=== PATIENT | female | born 1990 | race Caucasian/White ===

== ENCOUNTER 2024-08-24 08:12 | Inpatient (IN) ==
[2024-08-24] MEDS ORDERED: LIDOCAINE 1% LOCAL 20 ML VIAL INFIL PRN (09:18)
[2024-08-24] MEDS ORDERED: OXYTOCIN 30 UNITS/NSS 30 UNITS/500 ML BAG IV PRN ×2 (09:18→23:16)
--- NOTE | 2024-08-24 09:44 | History & Physical Report ---
Date of Service August 24, 2024 Assessment & Plan (1) Encounter for supervision of normal intrauterine in multigravida, antepartum: (2) Group B streptococcal infection during : (3) Insulin controlled gestational diabetes mellitus (GDM) during : (4) Gestational diabetes: Plan Yenni is a 34 y/o female currently at 39/0 WGA with an LONNIE 08/31/24 as determined LMP who is here for after SROM at home. Her was complicated by GDM and GBS pos. Category 1 tracing; moderate FHT variability. - Will order Pitocin is needed for progression of labor - Consult anesthesiology for epidural at pt's discretion - BSG checks q2h, insulin PRN - Start penicillin for GBS + - Monitor labor progress History of Present Illness Primary Care Provider: Vy Virk MD Yenni is a 34 y/o female currently at 39/0 WGA with an LONNIE 08/31/24 as determined LMP who is here for after SROM at home. Her was complicated by GDM and GBS pos. regular contractions; regular movement; + fluid loss; + bloody show Had regular appointments with OB. OB Labs: Blood Type B Positive 01/20/24 Antibody Screen NEGATIVE 01/20/24 Hgb 12.8 g/dl (12.0-16.0) 06/08/24 Hct 39.2 % (37.0-47.0) 06/08/24 MCV 88.0 fL (80.0-100.0) 01/20/24 Plt Count 315 K/uL (130-400) 01/20/24 Rubella IgG Antibody Immune (Immune) 01/20/24 Treponema pallidum Ab Negative (Negative) 06/08/24 Hep Bs Antigen Negative (Negative) 01/20/24 Hepatitis C Antibody Negative (Negative) 01/20/24 HIV 1&2 Ab/P24 Ag 4thGn Negative (Negative) 01/20/24 Glucose 1 Hr 50 gm 172 mg/dl (70-130) H 03/15/24 Maternal Serum AFP 27.6 ng/mL 03/15/24 OB Optional Labs: Chlamydia trachomatis RNA Not Detected (NotDetected) 01/20/24 Neisseria gonorrhoeae RNA Not Detected (NotDetected) 01/20/24 Alpha Fetoprotein Triple Screen SEE NOTE 03/15/24 Labs Reviewed: failed 16 week 2 hr gtt--[facility] neg cf/sma--[facility] low risk panorama--[facility] Allergies Allergy/AdvReac Type Severity Reaction Status Date / Time cefixime [From Suprax] Allergy Unknown Vomiting Verified 08/18/24 08:42 erythromycin base Allergy Unknown Vomiting Verified 08/18/24 08:42 sulfamethoxazole Allergy Unknown Vomiting Verified 08/18/24 08:42 [From Bactrim] trimethoprim [From Bactrim] Allergy Unknown Vomiting Verified 08/18/24 08:42 Home Medications Medication Instructions Recorded Confirmed Type [id number] acid 0 mg PO DAILY 01/21/23 08/24/24 History [ Multi] acetone (urine) test (Ketone Urine #50 ea 04/12/24 08/18/24 Rx Test strips) blood sugar diagnostic (Contour #150 ea 04/12/24 08/18/24 Rx Next Test Strips) lancets (Microlet Lancet) #100 ea 06/08/24 08/18/24 Rx insulin NPH isoph U-100 human 100 10 unit (0.1 mL) subcut .at bed 07/12/24 08/24/24 Rx unit/mL (3 mL) subcutaneous pen time #15 mL (Novolin N FlexPen) pen needle, diabetic 32 gauge x #100 ea 07/12/24 08/18/24 Rx 5/32" (BD Ultra-Fine Maranda Pen Needle) Patient History Medical History (Updated 08/24/24 @ 09:43 by Maggie Zhang DO) Varicella vaccination Cholesteatoma Age 7 right surgeryhar Surgical History History of ear surgery removal of cholesteatoma and stapedectomy H/O wisdom tooth extraction Family History Unknown No problems noted. 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 Denies breast pain. Denies dysuria. Noted headache this morning, no changes in vision. Physical Exam Physical Exam: General: Alert, oriented. No acute distress. Cardiac: Regular rate and rhythm, no murmurs/rubs/gallops. Respiratory: Clear to auscultation bilaterally a/p, no wheezes/rales/rhonchi. No increased work of breathing. Symmetrical chest rise. No respiratory distress. Abdomen: Gravid; Position: Vertex Pelvic: Dilation 3 cm; Effacement 70%; Station -[address] Cortes Lower Extremities: No lower extremity edema or swelling. No deep calf pain. Jules's negative bilaterally Results & Data Vital Signs (Past 12 Hours) Vital Signs Temp Pulse Resp BP 08/24/24 08:34 100 H 126/79 08/24/24 08:29 36.8 C 20 Monitoring External Monitor External FHT and external uterine monitors used; Category 1 tracing; moderate FHT variability. Supervising Physician Co-Signing Physician Notes Resident Physician Supervision Note: I interviewed and examined the patient. Discussed with Dr. Zhang and agree with findings and plan as documented in the note. Any exceptions or clarifications are listed here: 34 yo at 39 wga dx w/ rom - positive nitrazine, pooling, ferning. VSS, fetus cat 1. SVE 3/75/-2, eFW 7-8. Will allow to walk, pit prn. GBS+, pcn ordered. epidural prn Documented By: Kaylene Cortes MD Resident Activity Tracking Resident Involvement: Resident Care Provided Care Provided: Adult Hospital Medicine
[2024-08-24] MEDS: LACTATED RINGER'S 1,000 ML IV PRN (09:46)
[2024-08-24] MEDS: PENICILLIN GK 6 MU in DEXTROSE 5% 250 ML IV STA (09:46)
[2024-08-24 09:53] LABS: Hematocrit (blood only) 40.5 % (37.0-47.0); Hemoglobin 14.1 g/dl (12.0-16.0); Mean Corpuscular Hemoglobin 31.3 pg (25.0-34.0); Mean Corpuscular Hgb Conc 34.8 g/dL (32.0-36.0); Mean Platelet Volume 11.7 fL (9.4-12.4); Platelet Count 170 K/uL (130-400); RDW Coefficient of Variation 13.6 % (11.5-14.5); RDW Standard Deviation 44.9 fL (36.4-46.3)
--- NOTE | 2024-08-24 12:50 | Anesthesiology Consultation ---
Date of Service August 24, 2024 Assessment & Plan (1) Encounter for pre-operative examination: Chart Review Chart Review: Acceptable Risk for Labor Epidural History Height/Weight Height: 5 ft 1 in Weight: 60.328 kg Allergies Allergy/AdvReac Type Severity Reaction Status Date / Time cefixime [From Suprax] Allergy Unknown Vomiting Verified 08/18/24 08:42 erythromycin base Allergy Unknown Vomiting Verified 08/18/24 08:42 sulfamethoxazole Allergy Unknown Vomiting Verified 08/18/24 08:42 [From Bactrim] trimethoprim [From Bactrim] Allergy Unknown Vomiting Verified 08/18/24 08:42 Medications Home Medications Medication Instructions Recorded Confirmed Last Taken [id number] acid 0 mg PO DAILY 01/21/23 08/24/24 08/23/24 08:00 [ Multi] acetone (urine) test (Ketone Urine #50 ea 04/12/24 08/18/24 Unknown Test strips) blood sugar diagnostic (Contour #150 ea 04/12/24 08/18/24 Unknown Next Test Strips) lancets (Microlet Lancet) #100 ea 06/08/24 08/18/24 Unknown insulin NPH isoph U-100 human 100 10 unit (0.1 mL) subcut .at bed 07/12/24 08/24/24 08/23/24 20:00 unit/mL (3 mL) subcutaneous pen time #15 mL (Novolin N FlexPen) pen needle, diabetic 32 gauge x #100 ea 07/12/24 08/18/24 Unknown 5/32" (BD Ultra-Fine Maranda Pen Needle) Active Medications Generic Name Dose Route Start Last Admin Trade Name Freq PRN Reason Stop Dose Admin Lactated Ringer's 1,000 mls @ 125 mls/hr 08/24/24 09:18 08/24/24 12:30 Lr IV 08/25/24 09:17 999 mls/hr .Q8H PRN Infusion L&D Protocol Protocol Past Medical History Medical History (Updated 08/24/24 @ 12:50 by Adrian Orozco MD) Insulin controlled gestational diabetes mellitus (GDM) during Hearing loss Varicella vaccination Past Family History Family History Unknown No problems noted. Grandmother (Maternal) Breast cancer Mother Hypercholesteremia Hypothyroid Hypertension Denies family history of Ovarian cancer Colorectal cancer Past Surgical History Surgical History History of ear surgery removal of cholesteatoma and stapedectomy H/O wisdom tooth extraction Social History Smoking Status: Never smoker Do You Dip or Chew Tobacco: No Hx Alcohol Use: No (social) Hx Substance Use: No Physical Exam Vital Signs Last Vital Signs Temp 36.8 C 08/24/24 08:29 Pulse 96 H 08/24/24 12:02 Resp 20 08/24/24 08:29 BP 129/71 08/24/24 12:02 Testing Laboratory Results 08/24/24 09:30 08/24/24 08/24/24 12:04 09:32 POC Glucose 83 91
[2024-08-24] MEDS: fentaNYL citrate PF 100 MCG/2 ML VIAL ONE (13:16)
[2024-08-24] MEDS: fentANYL 2 MCG/ML BUPIVacaine 0.125%-NSS 100ML BAG ONE (13:16)
[2024-08-24] MEDS: BUPIVACAINE 0.25% PF 30 ML VIAL ONE (13:16)
[2024-08-24] MEDS ORDERED: SODIUM CHLORIDE 0.9% PF INJ 10 ML VIAL EPI PRN (13:22)
[2024-08-24] MEDS ORDERED: fentaNYL citrate PF 100 MCG/2 ML VIAL EPI PRN (13:22)
[2024-08-24] MEDS ORDERED: ePHEDrine sulfate 50 MG/ML AMP IV PRN (13:22)
[2024-08-24] MEDS ORDERED: BUPIVACAINE 0.25% PF 30 ML VIAL EPI PRN (13:22)
[2024-08-24] MEDS ORDERED: NALOXONE HCL 1 MG in SODIUM CHLORIDE 0.9% 1,000 ML IV PRN (13:22)
[2024-08-24] MEDS ORDERED: ROPIVACAINE 0.5% PF 5 MG/ML 20 ML VIAL EPI PRN (13:22)
[2024-08-24] MEDS ORDERED: LIDOCAINE 2% MPF LOCAL 5 ML VIAL EPI PRN (13:22)
[2024-08-24] MEDS ORDERED: NALOXONE HCL 0.4 MG/1 ML VIAL/CARP IV PRN (13:22)
--- NOTE | 2024-08-24 13:49 | Labor Progress Brief Note ---
Date of Service August 24, 2024 Subjective comfortable w/ epidural Assessment & Plan (1) Encounter for supervision of normal intrauterine in multigravida, antepartum: (2) Group B streptococcal infection during : (3) Insulin controlled gestational diabetes mellitus (GDM) during : (4) Gestational diabetes: Plan 34 yo at 39 wga presents w/ srom VSS Fetus cat 1 labor - good progress noted, augment prn A2GDM - bg good thus far GBS+, pcn ordered epidural in place Admission and Anticipated Discharge Date Admission Date: August 24, 2024 Physical Exam Genitourinary: Manual OB Exam: + cervical dilation 4 cm, + cervical effacement 90% and + station -1 OB Exam Monitor Tracing: + external FHT monitor used, + external uterine monitor used (q4-8) and + category I (135/mod/+accel/-decel) Results & Data Vital Signs (Past 12 Hours) Vital Signs Temp Pulse Resp BP Pulse Ox 08/24/24 13:45 93 H 119/67 08/24/24 13:41 101 H 98 08/24/24 13:36 105 H 142/66 H 99 08/24/24 13:31 99 H 98 08/24/24 13:30 16 08/24/24 13:30 96 H 16 114/67 08/24/24 13:26 105 H 96 08/24/24 13:25 20 08/24/24 13:25 20 08/24/24 13:24 100 H 101/57 L 08/24/24 13:23 107 H 106/61 08/24/24 13:21 109 H 108/64 97 08/24/24 13:20 20 08/24/24 13:20 20 08/24/24 13:19 93 H 110/63 08/24/24 13:17 111 H 117/67 08/24/24 13:16 113 H 97 08/24/24 13:15 113 H 103/62 08/24/24 13:14 20 08/24/24 13:14 20 08/24/24 13:13 111 H 109/63 08/24/24 13:11 115 H 115/60 97 08/24/24 13:06 116 H 98 08/24/24 13:01 118 H 99 08/24/24 12:03 18 08/24/24 12:03 98.1 F 18 08/24/24 12:02 96 H 129/71 08/24/24 08:34 100 H 126/79 08/24/24 08:29 98.2 F 20 Coding Level of Care Code None Diagnoses Encounter for supervision of normal intrauterine in multigravida, antepartum Z34.80 Group B streptococcal infection during O98.819; B95.1 Insulin controlled gestational diabetes mellitus (GDM) during O24.414 Gestational diabetes O24.419
[2024-08-24] MEDS: PENICILLIN GK 3 MU in DEXTROSE 5% 100 ML IV PRN (13:59)
[2024-08-24] MEDS: OXYTOCIN 30 UNITS/NSS 30 UNITS/500 ML BAG IV PRN (14:40)
[2024-08-24] MEDS: ONDANSETRON INJ 2 MG/ML 2 ML VIAL IV PRN (15:50)
[2024-08-24] MEDS ORDERED: ROPIVACAINE 0.5% 5 MG/ML 30 ML VIAL ONE (17:33)
[2024-08-24] MEDS ORDERED: LIDOCAINE 2%/EPINEPHRINE 1:200,000 20 ML PF ONE (17:33)
--- NOTE | 2024-08-24 17:40 | Anesthesia Procedure Note ---
Date of Service August 24, 2024 Anesthesia Epidural Re-Dose Vital Signs Temp Pulse Resp BP Pulse Ox 37.0 C 97 H 18 123/71 97 08/24/24 17:02 08/24/24 17:36 08/24/24 17:30 08/24/24 17:29 08/24/24 17:36 Notes Pain Intensity: 5 Dilatation (cm): 8.0 Effacement (%): 90 Called by nursing to evaluate epidural as the patient is having increased pain though still able to talk through contraction.. The epidural was re-dosed with the following medications (all medications via epidural route) after negative aspiration of the epidural catheter for CSF/HEME 1.2% lidocaine and 0.2% ropivacaine 7ml After Epidural Re-Dose Mental Status: alert / awake / arousable Pain: improving with treatment Airway Patency, RR, SpO2: stable & adequate BP & HR: stable & adequate
[2024-08-24] MEDS: LIDOCAINE 2%/EPINEPHRINE 1:200,000 20 ML PF ONE (17:59)
[2024-08-24] MEDS: SODIUM CHLORIDE 0.9% PF INJ 10 ML VIAL ONE (17:59)
[2024-08-24] MEDS: BUPIVACAINE 0.25% PF 30 ML VIAL EPI STA (17:59)
[2024-08-24] MEDS: fentaNYL citrate PF 100 MCG/2 ML VIAL EPI STA (17:59)
[2024-08-24] MEDS: SODIUM CHLORIDE 0.9% PF INJ 10 ML VIAL EPI STA (17:59)
[2024-08-24] MEDS: LIDOCAINE 2%/EPINEPHRINE 1:200,000 20 ML PF EPI STA (17:59)
[2024-08-24] MEDS: fentANYL 2 MCG/ML BUPIVacaine 0.125%-NSS 100ML BAG EPI PRN (19:42)
--- NOTE | 2024-08-24 23:13 | Delivery Summary ---
Vaginal Delivery Summary Date of Service August 24, 2024 Vaginal Delivery Summary [facility] PREOPERATIVE DIAGNOSIS: 1. Single intrauterine at 39 wga 2. SROM 3. A2GDM 4. GBS+ POSTOPERATIVE DIAGNOSIS: 1. Single intrauterine at 39 wga 2. SROM 3. A2GDM 4. GBS+ 5. Delivered PROCEDURE: 1. Normal spontaneous vaginal delivery. SURGEON: Kaylene Cortes MD ANESTHESIA: Epidural. QUANTITATIVE BLOOD LOSS: 223 mL FLUIDS: Continuous LR. URINE OUTPUT: 100cc by straight cath after delivery COMPLICATIONS: None. CONDITION: Stable. INDICATIONS: 34 yo at 39 wga presented this morning with SROM. She was started on penicillin for GBS+. She progressed spontaneously and received an epidural for pain control. Following the epidural, pitocin was started due to contractions spacing out. She progressed to complete and desired to push FINDINGS: A viable male , weight pending with Apgars of 9 and 9 at 1 and 5 minutes respectively. SPECIMEN: Cord blood OPERATIVE REPORT: The patient progressed to 10 cm, 100% effaced and +2 station, pushed over intact perineum with anesthesia to deliver a viable male infant, weight and Apgars as above. Head of delivered in MI position. No nuchal cord was present. Body and shoulders were delivered without difficulty. was delivered to maternal abdomen and nursing staff. Delayed cord clamping was performed for 60 seconds. Cord was clamped and cut. Cord blood was obtained. Placenta delivered spontaneously intact with 3-vessel cord. IV oxytocin and fundal massage were given for excellent hemostasis. Vagina, cervix, perineum, and placenta were inspected. Hemostatic anterior and right vaginal wall abras ions did not need repaired. Sponge and needle counts correct x2. No sponges were left behind. Mother and stable in immediate period. [facility] Vaginal Delivery Charge Vaginal Delivery Codes: 49087 global code for the antepartum, delivery, and post- Delivery Type Details: [facility]
[2024-08-24] MEDS ORDERED: bisacodyL 10 MG SUPP PR PRN (23:16)
[2024-08-24] MEDS ORDERED: HYDROCORTISONE ACETATE 25 MG SUPP PR PRN (23:16)
[2024-08-24] MEDS: ePHEDrine sulfate 50 MG/ML AMP ONE (23:44)
[2024-08-24] MEDS: DIPHTHER/TETAN/PERTUS Vaccine (Tdap, Adol/Adult) 0.5mL IM ONE (23:44)
[2024-08-24] MEDS: NURSING L&D Epidural Breakthrough Pain Update ONE (23:44)
[2024-08-24] MEDS: BENZOCAINE 20% SPRY 85 APPLN/85 GM CAN EXT PRN (23:50)
[2024-08-24] MEDS: IBUPROFEN 600 MG TAB PO PRN (23:50)
[2024-08-25] MEDS: ACETAMINOPHEN 325 MG TAB PO PRN (04:32)
--- NOTE | 2024-08-25 06:02 | Obstetrical Progress Note ---
Date of Service August 25, 2024 Assessment & Plan (1) Encounter for care and examination after delivery: (2) Group B streptococcal infection during : (3) Gestational diabetes: Plan Pt is 34 yo post- day 1 s/p at 39w0d. complicated by GDM and GBS pos. - Encourage ambulation and breast feeding - Pain control with tylenol and ibuprofen - Likely Discharge 08/26 Admission and Anticipated Discharge Date Admission Date: August 24, 2024 Supervising Physician Co-Signing Physician Notes Resident Physician Supervision Note: I interviewed and examined the patient. Discussed with Dr. Zhang and agree with findings and plan as documented in the note. Any exceptions or clarifications are listed here: PP1 s/p , doing well. VSS, exam benign. Continue routine care Documented By: Kaylene Cortes MD Subjective Pt is 34 yo post- day 1 s/p at 39w0d. complicated by GDM and GBS pos. Ambulation:In room with hand held assist Voiding: voiding normally Passing gas: no BM: No Diet tolerance: regular diet Lochia:bloody, no clots Feeding type: breast Current pain level: 0 /10 improved with tylenol Resting comfortably this morning in NAD. Noting continued numbness at toes after epidural. Some difficulty walking due to numbness. Had some nausea after delivery, but has resolved. Denies KATHLEEN, CP, SOB, N/V/D, LE pain/swelling. Review of Systems Review of Systems: As per HPI Physical Exam Constitutional: WD/WN, vitals as above Respiratory: normal respiratory effort, lungs clear to auscultation Cardiovascular: RRR, no murmur, no edema Gastrointestinal (Abdomen): normal bowel sounds, soft, nontender, no hepatosplenomegaly Uterine fundus firm and at 1 cm below level of umbilicus Neurologic: PERRL, EOMI, accommodation nl, no face palsy, no dysarthria Moving all 4 extremities on command Psychiatric: A+Ox3, euthymic affect Results & Data Vital Signs (Past 12 Hours) Vital Signs Temp Pulse Resp BP Pulse Ox 08/25/24 02:02 97 H 107/66 08/25/24 01:47 93 H 108/60 08/25/24 01:32 95 H 120/66 08/25/24 01:17 105 H 122/58 L 08/25/24 01:02 98 H 111/55 L 08/25/24 00:47 111 H 121/63 08/25/24 00:32 102 H 122/65 08/25/24 00:17 112 H 113/64 08/25/24 00:02 108 H 111/63 08/24/24 23:47 97 H 114/63 08/24/24 23:32 106 H 116/77 08/24/24 23:17 95 H 113/61 08/24/24 23:02 101 H 120/63 08/24/24 22:54 112 H 96 08/24/24 22:49 107 H 96 08/24/24 22:47 117 H 139/65 08/24/24 22:44 118 H 90 08/24/24 22:39 126 H 100 08/24/24 22:34 96 08/24/24 22:34 102 H 08/24/24 22:34 118 H 125/67 08/24/24 22:33 115 H 86 L 08/24/24 22:29 102 H 98 08/24/24 22:26 112 H 83 L 08/24/24 22:24 103 H 97 08/24/24 22:19 104 H 96 08/24/24 22:18 112 H 91 08/24/24 22:13 120 H 97 08/24/24 22:12 108 H 87 L 08/24/24 22:10 20 08/24/24 22:10 37.2 C 20 08/24/24 22:08 105 H 96 08/24/24 22:06 109 H 91 08/24/24 22:03 109 H 129/64 99 08/24/24 22:00 129 H 80 L 08/24/24 21:58 123 H 96 08/24/24 21:53 115 H 97 08/24/24 21:48 127 H 96 08/24/24 21:47 127 H 115/55 L 08/24/24 21:43 110 H 96 08/24/24 21:38 109 H 96 08/24/24 21:34 125 H 124/56 L 08/24/24 21:33 119 H 96 08/24/24 21:28 112 H 97 08/24/24 21:23 96 08/24/24 21:23 126 H 08/24/24 21:23 111 H 93 08/24/24 21:18 110 H 95 08/24/24 21:13 113 H 96 08/24/24 21:11 105 H 92 08/24/24 21:08 104 H 96 08/24/24 21:04 106 H 91 08/24/24 21:02 97 08/24/24 21:02 110 H 08/24/24 21:02 110 H 128/64 08/24/24 20:58 107 H 91 08/24/24 20:57 106 H 97 08/24/24 20:52 96 08/24/24 20:52 123 H 08/24/24 20:52 103 H 93 08/24/24 20:48 97 H 177/78 H 08/24/24 20:47 96 H 96 08/24/24 20:46 100 H 92 08/24/24 20:41 91 H 96 08/24/24 20:39 115 H 90 08/24/24 20:36 100 H 96 08/24/24 20:33 100 H 120/73 08/24/24 20:31 91 H 97 08/24/24 20:26 98 H 97 08/24/24 20:21 120 H 97 08/24/24 20:17 113 H 105/64 08/24/24 20:16 106 H 96 08/24/24 20:11 104 H 96 08/24/24 20:06 96 H 97 08/24/24 20:02 110 H 117/59 L 08/24/24 20:01 96 H 97 08/24/24 19:56 95 H 96 08/24/24 19:51 96 H 96 08/24/24 19:47 96 H 122/67 08/24/24 19:46 94 H 96 08/24/24 19:41 96 H 96 08/24/24 19:36 102 H 96 08/24/24 19:32 96 H 117/71 08/24/24 19:31 95 H 96 08/24/24 19:26 92 H 96 08/24/24 19:21 88 96 08/24/24 19:18 98 H 112/73 08/24/24 19:16 90 96 08/24/24 19:11 89 96 08/24/24 19:06 100 H 95 08/24/24 19:04 104 H 154/71 H 08/24/24 19:01 37.1 C 100 H 18 96 08/24/24 18:59 102 H 94 08/24/24 18:56 107 H 97 08/24/24 18:51 104 H 96 08/24/24 18:49 101 H 118/60 08/24/24 18:46 90 96 08/24/24 18:41 101 H 97 08/24/24 18:36 118 H 96 08/24/24 18:32 120 H 113/72 08/24/24 18:31 116 H 97 08/24/24 18:30 18 08/24/24 18:30 18 08/24/24 18:26 99 H 96 08/24/24 18:21 103 H 96 08/24/24 18:19 96 H 124/67 08/24/24 18:16 101 H 96 08/24/24 18:11 96 H 96 08/24/24 18:06 99 H 96 08/24/24 18:02 110 H 116/70 08/24/24 18:01 114 H 96 08/24/24 18:00 18 08/24/24 18:00 18 Resident Activity Tracking Resident Involvement: Resident Care Provided Care Provided: Adult Hospital Medicine
[2024-08-25] MEDS: PRENATAL VITAMIN 1 TAB PO SCH (09:19)
[2024-08-25] MEDS: DOCUSATE SODIUM 100 MG CAP PO SCH (09:19)
--- NOTE | 2024-08-25 14:56 | Anesthesia Procedure Note ---
Date of Service August 25, 2024 Anesthesia Post Epidural Note Vital Signs Vital Signs: Temp Pulse Resp BP Pulse Ox O2 Del Method 36.5 C 79 16 104/65 98 Room Air 08/25/24 11:30 08/25/24 11:30 08/25/24 11:30 08/25/24 11:30 08/25/24 11:30 08/25/24 11:30 Pain Intensity Upper Abdomen: Pain Intensity: 1 Notes Mental Status: alert / awake / arousable Nausea / Vomiting: adequately controlled Pain: adequately controlled Airway Patency, RR, SpO2: stable & adequate BP & HR: stable & adequate Hydration State: stable & adequate Neuraxial Anesthesia: was administered and sensory block is resolving Anesthetic Complications: no major complications apparent and Pt Satisfied with anesthetic care Epidural: Removed without complications and With tip intact
[2024-08-25] MEDS: bisacodyL 5 MG TABEC PO SCH (19:50)
[2024-08-25 19:58] VITALS: RESP 18
[2024-08-26 00:01] VITALS: O2SAT 98
--- NOTE | 2024-08-26 05:50 | Obstetrical Progress Note ---
Date of Service August 26, 2024 Assessment & Plan (1) Encounter for care and examination after delivery: (2) Group B streptococcal infection during : (3) Gestational diabetes: Plan Pt is 34 yo post- day 2 s/p at 39w0d. complicated by GDM and GBS pos. - Encourage ambulation and breast feeding - Pain control with tylenol and ibuprofen - Consult today - Discharge today Admission and Anticipated Discharge Date Admission Date: August 24, 2024 Supervising Physician Co-Signing Physician Notes Resident Physician Supervision Note: I was present with Dr. Zhang during the history and exam. I discussed the case with the resident and agree with the findings and plan as documented in the note. Any exceptions or clarifications are listed here: [None] Documented By: Darell Lange MD, FACOG Subjective Pt is 34 yo post- day 2 s/p at 39w0d. complicated by GDM and GBS pos. Ambulation:In room Voiding: voiding normally Passing gas: yes BM: No Diet tolerance: regular diet Lochia:bloody, no clots Feeding type: breast Current pain level: 0 /10 improved with tylenol Resting comfortably this morning in NAD. Denies KATHLEEN, CP, SOB, N/V/D, LE pain/swelling. Review of Systems Review of Systems: As per HPI Physical Exam Constitutional: WD/WN, vitals as above Respiratory: normal respiratory effort, lungs clear to auscultation Cardiovascular: RRR, no murmur, no edema Gastrointestinal (Abdomen): normal bowel sounds, soft, nontender, no hepatosplenomegaly Uterine fundus is firm and 1-2 cm below level of umbilicus Neurologic: PERRL, EOMI, accommodation nl, no face palsy, no dysarthria Psychiatric: A+Ox3, euthymic affect Results & Data Vital Signs (Past 12 Hours) Vital Signs Temp Pulse Pulse Resp BP Pulse Ox O2 Del Method 08/25/24 23:00 36.5 C 88 18 106/72 98 Room Air 08/25/24 19:50 36.6 C 84 18 103/69 97 Room Air 08/25/24 18:55 36.6 C 89 16 100/59 L 97 Room Air Resident Activity Tracking Resident Involvement: Resident Care Provided Care Provided: OB Delivery
[2024-08-26 09:05] VITALS: BP 116/76; TEMP 98.1
[2024-08-26 13:08] VITALS: PULSE 88
== END 2024-08-26 14:50 | disposition home or self-care (01) | DRG 807 ==
LOC: OPB 08:12 → 4S1 08:15 → 4E2 08-25 02:30
DX: O99.824 Streptococcus B carrier state complicating childbirth; Z37.0 Single live birth; O24.414 Gestational diabetes mellitus in pregnancy, insulin controlled; O42.02 Full-term premature rupture of membranes, onset of labor within 24 hours of rupture; Z3A.39 39 weeks gestation of pregnancy; O70.0 First degree perineal laceration during delivery